=== PATIENT | male | born 1990 | race Caucasian/White ===

== ENCOUNTER 2025-08-09 20:31 | Emergency (ER) | payer SELFPAY ==
[~2025-08-09] VITALS: Ht 180.3 cm; Wt 105.0 kg
[2025-08-09 20:41] VITALS: BP 126/78; PULSE 92; RESP 18; TEMP 98.4; O2SAT 98
== END 2025-08-09 21:37 | disposition home or self-care (01) ==
LOC: ER 20:31
DX: F10.129 Alcohol abuse with intoxication, unspecified (principal); Y90.9 Presence of alcohol in blood, level not specified
CPT/HCPCS: 99283